=== PATIENT | male | born 1960 | race Caucasian/White ===

== ENCOUNTER 2023-07-19 09:47 | Outpatient (CLI) | payer OTHER ==
[2023-07-19] MEDS ORDERED: Iopamidol-370 76% 500 ML MDV (1 ML CHARGE) ONE (14:53)
== END 2023-07-19 09:48 | disposition home or self-care (01) ==
LOC: BICCT 09:47
PROVIDERS: ATTEND Internal Medicine Cardiovascular Disease
DX: I65.23 Occlusion and stenosis of bilateral carotid arteries (principal)
CPT/HCPCS: 70498; 82565; Q9967

== ENCOUNTER 2023-10-11 06:02 | Inpatient (IN) | payer MEDICARE ==
[2023-10-11] MEDS ORDERED: EPINEPHrine 1 MG/ML VIAL ONE (06:39)
[2023-10-11] MEDS ORDERED: Heparin 5,000 UNITS/ML VIAL ONE (06:39)
[2023-10-11] MEDS ORDERED: Bupivacaine PF 0.5% 30 ML VIAL ONE (06:40)
[2023-10-11] MEDS ORDERED: Lidocaine 2% PF 100 mg/5 ml Syringe ONE (06:47)
[2023-10-11] MEDS ORDERED: Lidocaine 2% PF 5 ML VIAL ONE (06:47)
[2023-10-11] MEDS ORDERED: Heparin 10,000 UNITS/ 10 ML VIAL ONE (06:47)
[2023-10-11] MEDS ORDERED: Dexmedetomidine 200 MCG/2 ML VIAL ONE (06:47)
[2023-10-11] MEDS ORDERED: Phenylephrine 10 MG/ML VIAL ONE (06:47)
[2023-10-11] MEDS ORDERED: Sodium Chloride 0.9% 250 ML 250 ML ONE (06:47)
[2023-10-11] MEDS ORDERED: Dexamethasone 20 MG/5 ML VIAL ONE (06:47)
[2023-10-11] MEDS ORDERED: PHENYLEPHRINE-NS 100 MCG/ML 10 ML SYRINGE ONE (06:47)
[2023-10-11] MEDS ORDERED: CEFAZOLIN 1 GM VIAL ONE (06:47)
[2023-10-11] MEDS ORDERED: Rocuronium Bromide 10 MG/ML (10ML VIAL) ONE (06:47)
[2023-10-11] MEDS ORDERED: ePHEDrine Sulfate 50 MG/10 ML VIAL ONE (06:48)
[2023-10-11] MEDS ORDERED: fentaNYL PF 100 MCG/2 ML SYRINGE ONE (06:48)
[2023-10-11] MEDS ORDERED: Midazolam HCl 2 mg/2 ml Vial ONE (06:48)
[2023-10-11] MEDS ORDERED: SUGAMMADEX SODIUM 200 MG/2 ML VIAL ONE (06:48)
[2023-10-11] MEDS ORDERED: PROPOFOL 20 ML ONE (06:48)
[2023-10-11] MEDS ORDERED: Phenylephrine 40 MG/NS 250 ML 250 ML ONE (06:49)
[2023-10-11] MEDS ORDERED: Lidocaine 1% MPF 2 ML VIAL ONE (06:51)
[2023-10-11] MEDS ORDERED: Sodium Chloride 0.9% 0 ML ONE (06:51)
[2023-10-11] MEDS ORDERED: CEFAZOLIN 2 GM VIAL ONE (06:51)
[2023-10-11 07:10] LABS: #Basophils 0.03 10x3/uL (0.0-0.2); %Basophils 0.2 % (0.0-1.0); %Eosinophils 2.8 % (0.0-10.0); %Lymphocytes 14.5 % (21.0-51.0); %Monocytes 6.2 % (0.0-10.0); %Neutrophils 76.1 % (42.0-75.0); Hematocrit 40.8 % (42.0-52.0); Hemoglobin 14.3 g/dL (14.0-18.0); Mean Corpuscular Hemoglobin 31.8 pg (27.0-31.0); Mean Corpuscular Volume 90.7 fL (78.0-98.0); Mean Platelet Volume 9.6 fL (7.4-10.4); Platelet Count 318 10x3/uL (130-400); RBC Distribution Width 13.4 % (11.5-14.5)
[2023-10-11 07:30] LABS: INR-International Normal Ratio 0.9; PTT 27.3 sec (22.9-36.1); Prothrombin Time 11.6 sec (12.0-14.7)
[2023-10-11 07:51] LABS: Anion Gap 16 mmol/L (10-20); BUN (Urea Nitrogen) 8 mg/dL (8.4-25.7); Calc. Creatinine Clearance 87 mL/min (70-130); Calcium 9.4 mg/dL (7.8-10.44); Carbon Dioxide 20 mmol/L (23-31); Chloride 102 mmol/L (98-107); Estimated GFR 103; Glucose 91 mg/dL (80-115); Potassium 3.9 mmol/L (3.5-5.1); Sodium 134 mmol/L (136-145)
[2023-10-11] MEDS ORDERED: Promethazine HCl 25 MG/ML VIAL IM PRN (09:19)
[2023-10-11] MEDS ORDERED: fentaNYL 50 mcg/mL 1 mL Vial SLOW IVP PRN (09:19)
[2023-10-11] MEDS ORDERED: Ipratropium/Albuterol 3 ML NEB NEB PRN (09:19)
[2023-10-11] MEDS ORDERED: Ondansetron PF 4 MG/2 ML Vial IVP PRN (09:19)
[2023-10-11] MEDS ORDERED: Phenylephrine 40 MG in Sodium Chloride 0.9% 250 ML 250 ML IVPB PRN (09:19)
[2023-10-11] MEDS ORDERED: Nitroglycerin 50 MG/250 ML BOT 250 ML IVPB PRN (09:19)
[2023-10-11] MEDS ORDERED: hydrALAZINE 20 MG/ML VIAL SLOW IVP PRN (09:19)
[2023-10-11] MEDS ORDERED: traMADol HCl 50 MG TAB PO PRN (09:19)
[2023-10-11] MEDS ORDERED: Ibuprofen 800 MG TAB PO PRN (09:19)
[2023-10-11] MEDS ORDERED: Acetaminophen 325 MG TAB ONE (09:51)
[2023-10-11] MEDS: Acetaminophen 325 MG TAB PO SCH (09:56)
[2023-10-11] MEDS: Sodium Chloride 0.9% 1,000 ML IV SCH (11:42)
[2023-10-11] MEDS: Aspirin 81 mg Enteric Coated Tablet PO SCH (11:49)
[2023-10-11] MEDS: hydrALAZINE 25 MG TAB PO SCH ×2 (11:50→20:53)
[2023-10-11] MEDS: BuPROPion XL 150 MG ER.TAB PO SCH (11:50)
[2023-10-11] MEDS: Ipratropium/Albuterol 3 ML NEB NEB SCH (13:42)
[2023-10-11] MEDS: Atorvastatin Calcium 40 MG TAB PO SCH (15:25)
[2023-10-11] MEDS: CEFAZOLIN 2 GM in Sodium Chloride 0.9% 100 ML IVPB SCH (15:26)
[2023-10-11] MEDS: traMADol HCl 50 MG TAB PO PRN (17:46)
[2023-10-11] MEDS: Zolpidem Tartrate 5 MG TAB PO SCH (20:53)
[2023-10-11] MEDS: Amlodipine 10 MG TAB PO SCH (20:53)
[2023-10-11] MEDS: Pantoprazole DR 40 MG TAB PO SCH (20:53)
[2023-10-11] MEDS: Carvedilol 6.25 MG TAB PO SCH (20:53)
[2023-10-11] MEDS: Finasteride 5 MG TAB PO SCH (20:53)
[2023-10-12] MEDS: Acetaminophen 325 MG TAB PO PRN (06:40)
[2023-10-12 06:46] VITALS: TEMP 98.2
[2023-10-12] MEDS: Acetaminophen 325 MG TAB PO SCH (08:26)
[2023-10-12] MEDS: Aspirin 81 mg Enteric Coated Tablet PO SCH (08:27)
[2023-10-12] MEDS ORDERED: BuPROPion XL 150 MG ER.TAB PO SCH ×2 (09:00→15:00)
[2023-10-12] MEDS ORDERED: Clopidogrel Bisulfate 75 MG TAB PO SCH (15:00)
== END 2023-10-12 10:55 | disposition home or self-care (01) | DRG 39 ==
LOC: SURG A 06:02 → CCU 10:56
PROVIDERS: ADMIT Thoracic Surgery (Cardiothoracic Vascular Surgery); ATTEND Thoracic Surgery (Cardiothoracic Vascular Surgery)
PROC: 03CJ0ZZ Extirpation of Matter from Left Common Carotid Artery, Open Approach (ICD-10-PCS; principal; 2023-10-11)
PROC: 03CL0ZZ Extirpation of Matter from Left Internal Carotid Artery, Open Approach (ICD-10-PCS; 2023-10-11)
PROC: 03CN0ZZ Extirpation of Matter from Left External Carotid Artery, Open Approach (ICD-10-PCS; 2023-10-11)
PROC: 03UN0KZ Supplement Left External Carotid Artery with Nonautologous Tissue Substitute, Open Approach (ICD-10-PCS; 2023-10-11)
PROC: 3E033XZ Introduction of Vasopressor into Peripheral Vein, Percutaneous Approach (ICD-10-PCS; 2023-10-11)
DX: I65.23 Occlusion and stenosis of bilateral carotid arteries (principal); I10 Essential (primary) hypertension; E78.5 Hyperlipidemia, unspecified; F17.200 Nicotine dependence, unspecified, uncomplicated; I73.9 Peripheral vascular disease, unspecified; Z79.899 Other long term (current) drug therapy
CPT/HCPCS: 80048; 85025; 85610; 85730; 94640; C1713; C1768; C1776; J0171; J0665; J0690; J1100; J1642; J1644; J2001; J2250; J2371; J2704; J3490; J7050; J7620